=== PATIENT | male | born 1995 | race Hispanic/Latino ===

== ENCOUNTER 2022-11-28 18:24 | Emergency (ER) | payer OTHER ==
--- OUTSIDE RECORDS SUMMARY | 2022-11-28 18:29 | XMS REPORT | Continuity of Care Document ---
:1995 Author Organization [facility] t Address [address] [place] [address] [address] [place] [address] Care Team Providers Name Role Phone No MD, Pcp [facility] Primary Care Physician Unavailable ROSA FAJARDO Attending Clinician Unavailable Erik SHIRLEY, Mkyel Attending Clinician Dominga SHIRLEY, Emeka Attending Clinician Rosalino SHIRLEY, Yoly Attending Clinician Isaac SHIRLEY, Kush Alvarado Attending Clinician Christ SHIRLEY, Devendra Bernstein Attending Clinician JAMES ABEBE Attending Clinician Unavailable Payers Payer Name Policy Type Policy Number Effective Date Expiration Date S ource GENERIC OTHER [id number] 2022 2022 00:00:00 00:00:00 LISETH [id number] 2021 00:00:00 [facility] POS [id number] 2019 SELECT CHOICE 00:00:00 Problems Condition Condition Condition Status Onset Resolution Last Treating Co mments Source Name Details Category Date Date Treatment Clinician Date Morbid Morbid Disease Active 2023-0 [facility] obesity obesity 3-08 Health 00:00: 00 Crush Crush Disease Active [facility] injury injury 3-08 Health 00:00: 00 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 vascular 308 [facility] bypass bypass 00:00: 00 Fracture Fracture Disease Active [facility] of femur of femur 2-13 Health 00:00: 00 Critical Critical Disease Active 2021-03 [facility] polytrauma polytrauma 1-17 He alth 00:00: 00 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) 00 Allergies, Adverse Reactions, Alerts Allergy Allergy Status Severity Reaction(s) Onset Inactive Treating Comm ents Source Name Type Date Date Clinician NO KNOWN Allergy Active [facility] Social History Social Habit Start Date Stop Date Quantity Comments Source History of tobacco Cigarette Smoker [facility] use Exposure to 2022-07-31 2022-08-10 Not sure [facility] SARS-CoV-2 (event) 00:00:00 11:33:00 Tobacco use and 2022-01-12 2022-01-12 Smokeless tobacco [facility] exposure 00:00:00 00:00:00 non-user Alcohol Comment 2022-01-12 2022-01-12 DAILY [facility] 00:00:00 00:00:00 Alcohol intake 2020-11-11 2020-11-11 Current drinker [facility] 00[facility]00 of [facility] (finding) Cigarettes smoked 2019-10-02 2019-10-02 [facility] current (pack per 00:00:00 00:00:00 Medical Center day) - Reported Sex Assigned At [birth year] [facility] 00:00:00 00:00:00 [facility] Center Smoking Status Start Date Stop Date Source Tobacco smoking consumption [facility] Occasional tobacco smoker 2022-01-12 00:00:00 [facility] Smokes tobacco daily 2019-10-02 00:00:00 [facility] Medications Ordered Filled Start Stop Current Ordering Indication Dosage Frequency Signature Comments Components Source Medication Medication Date Date Medication? Clinician (SIG) Name Name acetaminoph 2022- Yes [id number] 1{tbl} Q6H Take 1 UT en-codeine 7-27 08-12 tablet by [facility] (Tylenol w/ 00:00: 04:59 mouth Codeine #3) 00 :00 every 6 300-30 MG (six) tablet hours if needed for severe pain for up to 15 days. aspirin 81 2022-0 Yes 81mg QD Take 81 mg U T MG EC 6-08 by mouth 1 Health tablet 10:54: (one) time 47 each day. aspirin 81 2022-0 Yes 81mg QD Take 81 mg U T MG EC 6-08 by mouth 1 Health tablet 10:54: (one) time 47 each day. aspirin 81 2022-0 Yes 81mg QD Take 81 mg U T MG EC 6-08 by mouth 1 Health tablet 10:54: (one) time 47 each day. acetaminoph Yes [id number] 1{tbl} Q6H Take 1 UT en-codeine 3-27 tablet by [facility] (Tylenol w/ 00:00: mouth Codeine #3) 00 every 6 300-30 MG (six) tablet hours if needed for severe pain. acetaminoph Yes [id number] 1{tbl} Q6H Take 1 UT en-codeine 3-27 tablet by [facility] (Tylenol w/ 00:00: mouth Codeine #3) 00 every 6 300-30 MG (six) tablet hours if needed for severe pain. acetaminoph Yes [id number] 1{tbl} Q6H Take 1 UT en-codeine 3-27 tablet by [facility] (Tylenol w/ 00:00: mouth Codeine #3) 00 every 6 300-30 MG (six) tablet hours if needed for severe pain. acetaminoph 2022- No [id number] 1{tbl} Q6H Take 1 UT en-codeine 3-27 07-27 tablet by [facility] (Tylenol w/ 00:00: 00:00 mouth Codeine #3) 00 :00 every 6 300-30 MG (six) tablet hours if needed for severe pain. traMADol 2022- No [id number] 50mg Q6H Take 1 UT (Ultram) 50 3-23 03-31 tablet (50 H ealth MG tablet 00:00: 04:59 mg total) 00 :00 by mouth every 6 (six) hours if needed for severe pain for up to 7 days. traMADol No [id number] 50mg Q6H Take 1 UT (Ultram) 50 06-08 tablet (50 H ealth MG tablet 00:00: 00:00 mg total) 00 :00 by mouth every 6 (six) hours if needed for severe pain for up to 7 days. acetaminoph No [id number] 1{tbl} Q6H Take 1 UT en-codeine 04-13 tablet by [facility] (Tylenol w/ 00:00: 05:59 mouth Codeine #3) 00 :00 every 6 300-30 MG (six) tablet hours if needed for severe pain for up to 7 days. bupivacaine 2021-03- No [id number] 2mL U T PF 01-12 Health (Marcaine) 15:37: 15:37 0.25 % 28 :00 injection 2 mL bupivacaine 2021-03- No [id number] 2mL U T PF 01-12 Health (Marcaine) 15:37: 15:37 0.25 % 28 :00 injection 2 mL lidocaine 2021-03- No [id number] 2mL UT (Xylocaine) 01-12 Health 1 % 15:37: 15:37 injection 2 28 :00 mL lidocaine 2021-03- No [id number] 2mL UT (Xylocaine) 01-12 Health 1 % 15:37: 15:37 injection 2 28 :00 mL triamcinolo 2021-03- No [id number] 40mg U T ne 01-12 Health acetonide 15:37: 15:37 (Kenalog-40 28 :00 ) injection 40 mg triamcinolo 2021-03- No [id number] 40mg U T ne 01-12 Health acetonide 15:37: 15:37 (Kenalog-40 28 :00 ) injection 40 mg triamcinolo 2021-03 No [id number] 40mg 40 mg, UT ne 01-12 [facility] acetonide 15:37: 15:37 cular, (Kenalog-40 28 :00 Once PRN ) injection Procedure, 40 mg Starting on Che 01/12/22 at 1037, For 1 dose triamcinolo 2021-03- No [id number] 40mg 40 mg, UT ne 01-12 [facility] acetonide 15:37: 15:37 cular, (Kenalog-40 28 :00 Once PRN ) injection Procedure, 40 mg Starting on Che 01/12/22 at 1037, For 1 dose lidocaine 2021-03- No [id number] 2mL 2 mL, UT (Xylocaine) 01-12 Injection, H ealth 1 % 15:37: 15:37 Once PRN injection 2 28 :00 Procedure, mL Starting on Che 01/12/22 at 1037, For 1 dose lidocaine 2021-03- No [id number] 2mL 2 mL, UT (Xylocaine) 01-12 Injection, H ealth 1 % 15:37: 15:37 Once PRN injection 2 28 :00 Procedure, mL Starting on Che 01/12/22 at 1037, For 1 dose bupivacaine 2021-03- No [id number] 2mL 2 mL, UT PF 01-12 Injection, Health (Marcaine) 15:37: 15:37 Once PRN 0.25 % 28 :00 Procedure, injection 2 Starting mL on Che 01/12/22 at 1037, For 1 dose bupivacaine 2021-03- No [id number] 2mL 2 mL, UT PF 01-12 Injection, Health (Marcaine) 15:37: 15:37 Once PRN 0.25 % 28 :00 Procedure, injection 2 Starting mL on Che 01/12/22 at 1037, For 1 dose bupivacaine 2021-03- No [id number] 2mL U T PF 01-12 Health (Marcaine) 15:37: 15:37 0.25 % 28 :00 injection 2 mL bupivacaine 2021-03- No [id number] 2mL U T PF 01-12 Health (Marcaine) 15:37: 15:37 0.25 % 28 :00 injection 2 mL lidocaine 2021-03- No [id number] 2mL UT (Xylocaine) 01-12 Health 1 % 15:37: 15:37 injection 2 28 :00 mL lidocaine 2021-03 No [id number] 2mL UT (Xylocaine) 01-12 Health 1 % 15:37: 15:37 injection 2 28 :00 mL triamcinolo 2021-03- No [id number] 40mg U T ne 01-12 Health acetonide 15:37: 15:37 (Kenalog-40 28 :00 ) injection 40 mg triamcinolo 2021-03- No [id number] 40mg U T ne 01-12 Health acetonide 15:37: 15:37 (Kenalog-40 28 :00 ) injection 40 mg triamcinolo 2021-03- No [id number] 40mg 40 mg, UT ne 01-12 [facility] acetonide 15:37: 15:37 cular, (Kenalog-40 28 :00 Once PRN ) injection Procedure, 40 mg Starting on Che 01/12/22 at 1037, For 1 dose triamcinolo 2021-03 No [id number] 40mg 40 mg, UT ne 01-12 [facility] acetonide 15:37: 15:37 cular, (Kenalog-40 28 :00 Once PRN ) injection Procedure, 40 mg Starting on Che 01/12/22 at 1037, For 1 dose lidocaine 2021-03 No [id number] 2mL 2 mL, UT (Xylocaine) 01-12 Injection, H ealth 1 % 15:37: 15:37 Once PRN injection 2 28 :00 Procedure, mL Starting on Che 01/12/22 at 1037, For 1 dose lidocaine 2021-03 No [id number] 2mL 2 mL, UT (Xylocaine) 01-12 Injection, H ealth 1 % 15:37: 15:37 Once PRN injection 2 28 :00 Procedure, mL Starting on Che 01/12/22 at 1037, For 1 dose bupivacaine 2021-03 No [id number] 2mL 2 mL, UT PF 01-12 Injection, Health (Marcaine) 15:37: 15:37 Once PRN 0.25 % 28 :00 Procedure, injection 2 Starting mL on Che 01/12/22 at 1037, For 1 dose bupivacaine 2021-03 No [id number] 2mL 2 mL, UT PF 01-12 Injection, Health (Marcaine) 15:37: 15:37 Once PRN 0.25 % 28 :00 Procedure, injection 2 Starting mL on Che 01/12/22 at 1037, For 1 dose fenoprofen 2021-03 No [id number] 600mg Q.[id number] Take 1 UT (Nalfon) 02-06 [id number] tablet He alth 600 MG 00:00: 05:59 3D (600 mg tablet 00 :00 total) by mouth in the morning and 1 tablet (600 mg total) at noon and 1 tablet (600 mg total) in the evening. fenoprofen 2021-03- No [id number] 600mg Q.[id number] Take 1 UT ([place]) 02-06 [id number] tablet He alth 600 MG 00:00: 05:59 3D (600 mg tablet 00 :00 total) by mouth in the morning and 1 tablet (600 mg total) at noon and 1 tablet (600 mg total) in the evening. traMADol 2021-03 No [id number] 50mg Q6H Take 1 U T (Ultram) 50 0-19 10-30 tablet (50 H ealth MG tablet 00:00: 04:59 mg total) 00 :00 by mouth every 6 (six) hours if needed for severe pain for up to 10 days. traMADol 2021-03 No [id number] 50mg Q6H Take 1 U T (Ultram) 50 0-19 10-30 tablet (50 H ealth MG tablet 00:00: 04:59 mg total) 00 :00 by mouth every 6 (six) hours if needed for severe pain for up to 10 days. traMADol 2021-03 No [id number] 50mg Q6H Take 1 U T (Ultram) 50 0-19 10-30 tablet (50 H ealth MG tablet 00:00: 04:59 mg total) 00 :00 by mouth every 6 (six) hours if needed for severe pain for up to 10 days. fenoprofen Yes [id number] TAKE 1 UT ([place]) 9-16 TABLET BY Health 600 MG 00:00: MOUTH 3 tablet 00 TIMES A DAY WITH FOOD fenoprofen 2-0 Yes [id number] TAKE 1 UT ([place]) 9-16 TABLET BY Health 600 MG 00:00: MOUTH 3 tablet 00 TIMES A DAY WITH FOOD fenoprofen 2-0 Yes [id number] TAKE 1 UT ([place]) 9-16 TABLET BY Health 600 MG 00:00: MOUTH 3 tablet 00 TIMES A DAY WITH FOOD fenoprofen 2021-0 Yes [id number] TAKE 1 UT ([place]) 9-16 TABLET BY Health 600 MG 00:00: MOUTH 3 tablet 00 TIMES A DAY WITH FOOD fenoprofen 2021-0 Yes [id number] TAKE 1 UT ([place]) 9-16 TABLET BY [facility] 600 MG 00:00: MOUTH 3 tablet 00 TIMES A DAY WITH FOOD fenoprofen 2-0 Yes [id number] TAKE 1 UT ([place]) 9-16 TABLET BY Health 600 MG 00:00: MOUTH 3 tablet 00 TIMES A DAY WITH FOOD fenoprofen 2021-0 Yes [id number] TAKE 1 UT ([place]) 9-16 TABLET BY [facility] 600 MG 00:00: MOUTH 3 tablet 00 TIMES A DAY WITH FOOD fenoprofen 2021-0 Yes [id number] TAKE 1 UT ([place]) 9-16 TABLET BY [facility] 600 MG 00:00: MOUTH 3 tablet 00 TIMES A DAY WITH FOOD fenoprofen 2-0 Yes [id number] TAKE 1 UT ([place]) 9-16 TABLET BY [facility] 600 MG 00:00: MOUTH 3 tablet 00 TIMES A DAY WITH FOOD fenoprofen 2021-0 Yes [id number] TAKE 1 UT ([place]) 9-16 TABLET BY [facility] 600 MG 00:00: MOUTH 3 tablet 00 TIMES A DAY WITH FOOD fenoprofen 2-0 Yes [id number] TAKE 1 UT ([place]) 9-16 TABLET BY Health 600 MG 00:00: MOUTH 3 tablet 00 TIMES A DAY WITH FOOD traMADol 2021-0 2- No [id number] 50mg Q6H Take 1 U T (Ultram) 50 3-28 04-03 tablet (50 H ealth MG tablet 00:00: 04:59 mg total) 00 :00 by mouth every 6 (six) hours if needed for severe pain for up to 5 days. fenoprofen Yes [id number] TAKE ONE UT ([place]) 1-07 (1) TABLET Healt h 600 MG 00:00: BY MOUTH tablet 00 THREE (3) TIMES DAILY WITH FOOD chlordiazeP 2020- No Take [address] [facility] 11[facility]11-29 [facility] (LIBRIUM) 00:00: 23:59 every 6 Medi hao 25 MG 00 :00 hours for Center capsule 4 doses, then 1 tablet every 6 hours for 8 doses. Do not drink alcohol while on this medication .. Vital Signs Vital Name Observation Time Observation Value Comments Source Systolic blood 2022-08-24 15:44:00 129 mm[Hg] [facility] pressure Diastolic blood 2022-08-24 15:44:00 89 mm[Hg] [facility] pressure Heart rate 2022-08-24 15:44:00 77 /min [facility] Respiratory rate 2022-08-24 15:44:00 18 /min [facility] ealth Body weight 2022-08-24 15:44:00 90.175 kg [facility] BMI 2022-08-24 15:44:00 32.09 [facility]m2 [facility] 2022-08-24 15:44:00 97 /min [facility] Arterial blood by Pulse oximetry Body height 2022-06-12 16:31:00 170.2 cm [facility] Body weight 2022-06-12 16:31:00 86.183 kg [facility] BMI 2022-06-12 16:31:00 29.76 kg/m2 [facility] Body height 2022-01-12 14:55:00 167.6 cm [facility] Body weight 2022-01-12 14:55:00 81.647 kg [facility] BMI 2022-01-12 14:55:00 29.05 kg/m2 [facility] Body height 2021-06-13 20:26:00 167.6 cm [facility] Body weight 2021-06-13 20:26:00 83.915 kg [facility] BMI 2021-06-13 20:26:00 29.86 kg/m2 [facility] HEIGHT 2020-11-11 04:45:00 167.6 cm WEIGHT 2020-11-11 04:45:00 81.647 kg HEIGHT 2020-11-11 04:45:00 167.6 cm WEIGHT 2020-11-11 04:45:00 81.647 kg HEIGHT 2019-10-02 00:00:00 167.6 cm WEIGHT 2019-10-02 00:00:00 86.183 kg Systolic blood 2020-11-11 06:48:00 136 mm[Hg] [facility] Diastolic blood 2020-11-11 06:48:00 76 mm[Hg] [facility] Heart rate 2020-11-11 06:48:00 105 /min [facility] Body temperature 2020-11-11 06:48:00 36.89 [facility] Respiratory rate 2020-11-11 06:48:00 18 /min [facility] Oxygen saturation in 2020-11-11 05:44:00 94 /min [facility] Arterial blood by Medical Ce nter Pulse oximetry Body height 2020-11-11 04:45:00 167.6 cm [facility] Body weight 2020-11-11 04:45:00 81.647 kg [facility] BMI 2020-11-11 04:45:00 29.05 kg/m2 [facility] Procedures Procedure Date / Time Performing Clinician Source Performed ARTHROCENTESIS 2022-01-12 15:37:28 Rosalino [facility] ASPIR&/INJ MAJOR JT/BURSA W/US BILATERAL CBC W/PLT COUNT & AUTO 2020-11-11 05:44:00 Kush Gray [facility] DIFFERENTIAL [facility] COMPREHENSIVE METABOLIC 2020-11-11 05:44:00 Kush Gray [facility]AT[facility] (CK) 2020-11-11 05:44:00 Kush Gray [facility] LACTIC ACID, VENOUS 2020-11-11 05:44:00 Kush Gray [facility] CBC W/PLT COUNT & AUTO 2020-11-11 05:44:00 Kush Gray [facility] DIFFERENTIAL [facility] Infectious agent 2019-07-26 00:00:00 [facility] detection by nucleic acid (DNA or Plan of Care Planned Activity Planned Date Details Comments Source Future Scheduled 2022-11-17 Influenza Vaccine (#1) [facility] 00:00:00 [code = Influenza Vaccine Me dical Center (#1)] Future Scheduled 2022-11-17 INFLUENZA VACCINE (Season [facility] 00:00:00 Ended) [code = INFLUENZA Med ical Center VACCINE (Season Ended)] Future Scheduled 2022-11-17 INFLUENZA VACCINE (Season [facility] 00:00:00 Ended) [code = INFLUENZA Med ical Center VACCINE (Season Ended)] Future Scheduled 2022-11-17 INFLUENZA VACCINE (Season [facility] Test 00:00:00 Ended) [code = INFLUENZA Med ical Center VACCINE (Season Ended)] Future Scheduled 2022-11-17 INFLUENZA VACCINE (Season [facility] Test 00:00:00 Ended) [code = INFLUENZA Med ical Center VACCINE (Season Ended)] Future Scheduled 2022-11-17 Influenza Vaccine (Season [facility] 00:00:00 Ended) [code = Influenza Med ical Center Vaccine (Season Ended)] Future Scheduled 2022-11-17 Influenza Vaccine (#1) [facility] 00:00:00 [code = Influenza Vaccine Me dical Center (#1)] Future Scheduled 2022-11-17 Influenza Vaccine (#1) [facility] 00:00:00 [code = Influenza Vaccine Me dical Center (#1)] Future Scheduled 2022-03-[address] [facility] 00:00:00 (12+) [code = DEPRESSION Med ical Center SCREENING (12+)] Future Scheduled 2022-03-[address] [facility] 00:00:00 (12+) [code = DEPRESSION Med ical Center SCREENING (12+)] Future Scheduled 2022-03-[address] [facility] 00:00:00 (12+) [code = DEPRESSION Med ical Center SCREENING (12+)] Future Scheduled 2022-03-[address] [facility] 00:00:00 (12+) [code = DEPRESSION Med ical Center SCREENING (12+)] Future Scheduled 2022-03-[address] [facility] 00:00:00 (12+) [code = DEPRESSION Med ical Center SCREENING (12+)] Future Scheduled 2022-03-[address] [facility] 00:00:00 (12+) [code = DEPRESSION Med ical Center SCREENING (12+)] Future Scheduled 2022-03-[address] [facility] 00:00:00 (12+) [code = DEPRESSION Med ical Center SCREENING (12+)] Future Scheduled 2022-03-[address] [facility] 00:00:00 (12+) [code = DEPRESSION Med ical Center SCREENING (12+)] Future Scheduled 2022-03-[address] [facility] 00:00:00 (12+) [code = DEPRESSION Med ical Center SCREENING (12+)] Future Scheduled 2022-03-[address] [facility] 00:00:00 (12+) [code = DEPRESSION Med ical Center SCREENING (12+)] Future Scheduled 2022-03-[address] [facility] 00:00:00 (12+) [code = DEPRESSION Med ical Center SCREENING (12+)] Future Scheduled 2022-03-[address] [facility] 00:00:00 (12+) [code = DEPRESSION Med ical Center SCREENING (12+)] Future Scheduled 2022-03-[address] [facility] 00:00:00 (12+) [code = DEPRESSION Med ical Center SCREENING (12+)] Future Scheduled 2022-03-[address] [facility] 00:00:00 (12+) [code = DEPRESSION Med ical Center SCREENING (12+)] Future Scheduled 2022-03-[address] [facility] 00:00:00 (12+) [code = DEPRESSION Med ical Center SCREENING (12+)] Future Scheduled 2022-03-[address] [facility] 00:00:00 (12+) [code = DEPRESSION Med ical Center SCREENING (12+)] Future Scheduled 2021-11-17 INFLUENZA VACCINE (#1) [facility] 00:00:00 [code = INFLUENZA VACCINE Me dical Center (#1)] Future Scheduled 2021-11-17 INFLUENZA VACCINE (#1) [facility] 00:00:00 [code = INFLUENZA VACCINE Me dical Center (#1)] Future Scheduled 2021-11-17 INFLUENZA VACCINE (#1) [facility] 00:00:00 [code = INFLUENZA VACCINE Me dical Center (#1)] Future Scheduled 2021-11-17 INFLUENZA VACCINE (#1) [facility] 00:00:00 [code = INFLUENZA VACCINE Me dical Center (#1)] Future Scheduled 2021-11-17 INFLUENZA VACCINE (#1) [facility] 00:00:00 [code = INFLUENZA VACCINE Me dical Center (#1)] Future Scheduled 2021-11-17 INFLUENZA VACCINE (#1) [facility] 00:00:00 [code = INFLUENZA VACCINE Me dical Center (#1)] Future Scheduled 2021-11-17 INFLUENZA VACCINE (#1) [facility] 00:00:00 [code = INFLUENZA VACCINE Me dical Center (#1)] Future Scheduled 2021-11-17 INFLUENZA VACCINE (#1) [facility] 00:00:00 [code = INFLUENZA VACCINE Me dical Center (#1)] Future Scheduled 2021-11-17 INFLUENZA VACCINE (#1) [facility] 00:00:00 [code = INFLUENZA VACCINE Me dical Center (#1)] Future Scheduled 2021-11-17 INFLUENZA VACCINE (#1) [facility] 00:00:00 [code = INFLUENZA VACCINE Me dical Center (#1)] Future Scheduled 2021-11-17 INFLUENZA VACCINE (#1) [facility] 00:00:00 [code = INFLUENZA VACCINE Me dical Center (#1)] Future Scheduled 2021-11-17 INFLUENZA VACCINE (#1) [facility] 00:00:00 [code = INFLUENZA VACCINE Me dical Center (#1)] Future Scheduled 2021-11-[address] [facility] 00:00:00 Counseling and Screening Med ica Center (12+) [code = Tobacco Cessation Counseling and Screening (12+)] Future Scheduled 2021-11-[address] [facility] 00:00:00 Counseling and Screening Med ical Center (12+) [code = Tobacco Cessation Counseling and Screening (12+)] Future Scheduled 2021-11-[address] [facility] 00:00:00 Counseling and Screening Med ical Center (12+) [code = Tobacco Cessation Counseling and Screening (12+)] Future Scheduled 2021-11-[address] [facility] 00:00:00 Counseling and Screening Med ical Center (12+) [code = Tobacco Cessation Counseling and Screening (12+)] Future Scheduled 2021-11-[address] [facility] 00:00:00 Counseling and Screening Med ical Center (12+) [code = Tobacco Cessation Counseling and Screening (12+)] Future Scheduled 2021-11-[address] [facility] 00:00:00 Counseling and Screening Med ical Center (12+) [code = Tobacco Cessation Counseling and Screening (12+)] Future Scheduled 2021-11-[address] [facility] 00:00:00 Counseling and Screening Med ical Center (12+) [code = Tobacco Cessation Counseling and Screening (12+)] Future Scheduled 2021-11-[address] [facility] 00:00:00 Counseling and Screening Med ical Center (12+) [code = Tobacco Cessation Counseling and Screening (12+)] Future Scheduled 2021-11-[address] [facility] 00:00:00 Counseling and Screening Med ical Center (12+) [code = Tobacco Cessation Counseling and Screening (12+)] Future Scheduled 2021-11-[address] [facility] 00:00:00 Counseling and Screening Med ical Center (12+) [code = Tobacco Cessation Counseling and Screening (12+)] Future Scheduled 2021-11-[address] [facility] 00:00:00 Counseling and Screening Med ical Center (12+) [code = Tobacco Cessation Counseling and Screening (12+)] Future Scheduled 2021-11-[address] [facility] 00:00:00 Counseling and Screening Med ical Center (12+) [code = Tobacco Cessation Counseling and Screening (12+)] Future Scheduled 2021-11-[address] [facility] 00:00:00 Counseling and Screening Med ical Center (12+) [code = Tobacco Cessation Counseling and Screening (12+)] Future Scheduled 2021-11-[address] [facility] 00:00:00 Counseling and Screening Med ical Center (12+) [code = Tobacco Cessation Counseling and Screening (12+)] Future Scheduled 2021-11-[address] [facility] 00:00:00 Counseling and Screening Med ical Center (12+) [code = Tobacco Cessation Counseling and Screening (12+)] Future Scheduled 2021-11-[address] [facility] 00:00:00 Counseling and Screening Med ical Center (12+) [code = Tobacco Cessation Counseling and Screening (12+)] Future Scheduled 2021-11-[address] [facility] 00:00:00 Counseling and Screening Med ical Center (12+) [code = Tobacco Cessation Counseling and Screening (12+)] Future Scheduled 2021-11-[address] [facility] 00:00:00 Counseling and Screening Med ical Center (12+) [code = Tobacco Cessation Counseling and Screening (12+)] Future Scheduled 2021-11-[address] [facility] 00:00:00 Counseling and Screening Med ical Center (12+) [code = Tobacco Cessation Counseling and Screening (12+)] Future Scheduled 2021-03-[address] [facility] 00:00:00 (12+) [code = DEPRESSION Med ical Center SCREENING (12+)] Future Scheduled 2021-03-[address] [facility] 00:00:00 (12+) [code = DEPRESSION Med ical Center SCREENING (12+)] Future Scheduled 2021-03-[address] [facility] 00:00:00 (12+) [code = DEPRESSION Med ical Center SCREENING (12+)] Future Scheduled 2021-03-[address] [facility] 00:00:00 (12+) [code = DEPRESSION Med ical Center SCREENING (12+)] Future Scheduled 2021-03-[address] [facility] 00:00:00 (12+) [code = DEPRESSION Med ical Center SCREENING (12+)] Future Scheduled 2020-11-17 INFLUENZA VACCINE (#1) [facility] 00:00:00 [code = INFLUENZA VACCINE Or dical Center (#1)] Future Scheduled 2014 Lipid panel (procedure) [facility] 00:00:00 [code = [id number]] Medical Ce nter Future Scheduled 2014 Lipid panel (procedure) [facility] 00:00:00 [code = [id number]] Medical Ce nter Future Scheduled 2014 Lipid panel (procedure) [facility] 00:00:00 [code = [id number]] Medical Ce nter Future Scheduled 2014 Lipid panel (procedure) [facility] 00:00:00 [code = [id number]] Medical Ce nter Future Scheduled 2014 Lipid panel (procedure) [facility] 00:00:00 [code = [id number]] Medical Ce nter Future Scheduled 2014 Lipid panel (procedure) [facility] 00:00:00 [code = [id number]] Medical Ce nter Future Scheduled 2014 Lipid panel (procedure) [facility] 00:00:00 [code = [id number]] Medical Ce nter Future Scheduled 2014 Lipid panel (procedure) [facility] 00:00:00 [code = [id number]] Medical Ce nter Future Scheduled 2014 Lipid panel (procedure) [facility] 00:00:00 [code = [id number]] Medical Ce nter Future Scheduled 2014 Lipid panel (procedure) [facility] 00:00:00 [code = [id number]] Medical Ce nter Future Scheduled 2014 Lipid panel (procedure) [facility] 00:00:00 [code = [id number]] Medical Ce nter Future Scheduled 2014 Lipid panel (procedure) [facility] 00:00:00 [code = 36826234] Medical Ce nter Future Scheduled 2014 Lipid panel (procedure) [facility] 00:00:00 [code = [id number]] Medical Ce nter Future Scheduled 2014 Lipid panel (procedure) [facility] 00:00:00 [code = [id number]] Medical Ce nter Future Scheduled 2014 Lipid panel (procedure) [facility] 00:00:00 [code = [id number]] Medical Ce nter Future Scheduled 2014 Lipid panel (procedure) [facility] 00:00:00 [code = 51669473] Medical Ce nter Future Scheduled 2014 Lipid panel (procedure) [facility] 00:00:00 [code = 95375480] Medical Ce nter Future Scheduled 2014 Lipid panel (procedure) [facility] 00:00:00 [code = 41253066] Medical Ce nter Future Scheduled 2014 Lipid panel (procedure) [facility] 00:00:00 [code = 09932349] Medical Ce nter Future Scheduled 2014 Lipid panel (procedure) [facility] 00:00:00 [code = 75832095] Medical Ce nter Future Scheduled 2014 Lipid panel (procedure) [facility] 00:00:00 [code = [id number]] Medical Ce nter Future Scheduled 2013 DTAP/TDAP/TD VACCINES ([address] [facility] 00:00:00 - Tdap) [code = Medical Cent er DTAP/TDAP/TD VACCINES (1 - Tdap)] Future Scheduled 2013 DTAP/TDAP/TD VACCINES ([address] [facility] 00:00:00 - Tdap) [code = Medical Cent er DTAP/TDAP/TD VACCINES (1 - Tdap)] Future Scheduled 2013 DTAP/TDAP/TD VACCINES ([address] [facility] 00:00:00 - Tdap) [code = Medical Cent er DTAP/TDAP/TD VACCINES (1 - Tdap)] Future Scheduled 2013 DTAP/TDAP/TD VACCINES ([address] [facility] 00:00:00 - Tdap) [code = Medical Cent er DTAP/TDAP/TD VACCINES (1 - Tdap)] Future Scheduled 2013 DTAP/TDAP/TD VACCINES ([address] [facility] 00:00:00 - Tdap) [code = Medical Cent er DTAP/TDAP/TD VACCINES (1 - Tdap)] Future Scheduled 2013 DTAP/TDAP/TD VACCINES ([address] [facility] 00:00:00 - Tdap) [code = Medical Cent er DTAP/TDAP/TD VACCINES (1 - Tdap)] Future Scheduled 2013 DTAP/TDAP/TD VACCINES ([address] [facility] 00:00:00 - Tdap) [code = Medical Cent er DTAP/TDAP/TD VACCINES (1 - Tdap)] Future Scheduled 2013 DTAP/TDAP/TD VACCINES ([address] [facility] 00:00:00 - Tdap) [code = Medical Cent er DTAP/TDAP/TD VACCINES (1 - Tdap)] Future Scheduled 2013 DTAP/TDAP/TD VACCINES ([address] [facility] 00:00:00 - Tdap) [code = Medical Cent er DTAP/TDAP/TD VACCINES (1 - Tdap)] Future Scheduled 2013 DTAP/TDAP/TD VACCINES ([address] [facility] 00:00:00 - Tdap) [code = Medical Cent er DTAP/TDAP/TD VACCINES (1 - Tdap)] Future Scheduled 2013 DTAP/TDAP/TD VACCINES ([address] [facility] 00:00:00 - Tdap) [code = Medical Cent er DTAP/TDAP/TD VACCINES (1 - Tdap)] Future Scheduled 2013 DTAP/TDAP/TD VACCINES ([address] [facility] 00:00:00 - Tdap) [code = Medical Cent er DTAP/TDAP/TD VACCINES (1 - Tdap)] Future Scheduled 2013 DTAP/TDAP/TD VACCINES ([address] [facility] 00:00:00 - Tdap) [code = Medical Cent er DTAP/TDAP/TD VACCINES (1 - Tdap)] Future Scheduled 2013 DTAP/TDAP/TD VACCINES ([address] [facility] 00:00:00 - Tdap) [code = Medical Cent er DTAP/TDAP/TD VACCINES (1 - Tdap)] Future Scheduled 2013 DTAP/TDAP/TD VACCINES ([address] [facility] 00:00:00 - Tdap) [code = Medical Cent er DTAP/TDAP/TD VACCINES (1 - Tdap)] Future Scheduled 2013 DTAP/TDAP/TD VACCINES ([address] [facility] 00:00:00 - Tdap) [code = Medical Cent er DTAP/TDAP/TD VACCINES (1 - Tdap)] Future Scheduled 2013 DTAP/TDAP/TD VACCINES ([address] [facility] 00:00:00 - Tdap) [code = Medical Cent er DTAP/TDAP/TD VACCINES (1 - Tdap)] Future Scheduled 2013 DTAP/TDAP/TD VACCINES ([address] [facility] 00:00:00 - Tdap) [code = Medical Cent er DTAP/TDAP/TD VACCINES (1 - Tdap)] Future Scheduled 2013 DTAP/TDAP/TD VACCINES ([address] [facility] 00:00:00 - Tdap) [code = Medical Cent er DTAP/TDAP/TD VACCINES (1 - Tdap)] Future Scheduled 2013 DTAP/TDAP/TD VACCINES ([address] [facility] 00:00:00 - Tdap) [code = Medical Cent er DTAP/TDAP/TD VACCINES (1 - Tdap)] Future Scheduled 2013 DTAP/TDAP/TD VACCINES ([address] [facility] 00:00:00 - Tdap) [code = Medical Cent er DTAP/TDAP/TD VACCINES (1 - Tdap)] Future Scheduled 2012 HE[facility]ITIS C [facility]CRE[facility] [code = HEPATITIS C Medical Center SCREENING] Future Scheduled 2012 [facility]ITIS C [facility]:00:00 [code = HEPATITIS C Medical Center SCREENING] Future Scheduled 2012 HE[facility]ITIS C [facility]:00:00 [code = HEPATITIS C Medical Center SCREENING] Future Scheduled 2012 HE[facility]ITIS C [facility] 00:00:00 [code = HEPATITIS C Medical Center SCREENING] Future Scheduled 2012 HE[facility]ITIS C [facility] 00:00:00 [code = HEPATITIS C Medical Center SCREENING] Future Scheduled 2012 HE[facility]ITIS C [facility] 00:00:00 [code = HEPATITIS C Medical Center SCREENING] Future Scheduled 2012 HEPATITIS C [facility] 00:00:00 [code = HEPATITIS C Medical Center SCREENING] Future Scheduled 2012 HE[facility]ITIS C [facility] 00:00:00 [code = HEPATITIS C Medical Center SCREENING] Future Scheduled 2012 HEPATITIS C [facility] 00:00:00 [code = HEPATITIS C Medical Center SCREENING] Future Scheduled 2012 HEPATITIS C [facility] 00:00:00 [code = HEPATITIS C Medical Center SCREENING] Future Scheduled 2012 HEPATITIS C [facility] 00:00:00 [code = HEPATITIS C Medical Center SCREENING] Future Scheduled 2012 HEPATITIS C [facility] 00:00:00 [code = HEPATITIS C Medical Center SCREENING] Future Scheduled 2012 HEPATITIS C [facility] 00:00:00 [code = HEPATITIS C Medical Center SCREENING] Future Scheduled 2012 HE[facility]ITIS C [facility] 00:00:00 [code = HEPATITIS C Medical Center SCREENING] Future Scheduled 2012 HE[facility]ITIS C [facility] 00:00:00 [code = HEPATITIS C Medical Center SCREENING] Future Scheduled 2012 HE[facility]ITIS C [facility] 00:00:00 [code = HEPATITIS C Medical Center SCREENING] Future Scheduled 2012 HEPATITIS C [facility] 00:00:00 [code = HEPATITIS C Medical Center SCREENING] Future Scheduled 2012 HEPATITIS C [facility] 00:00:00 [code = HEPATITIS C Medical Center SCREENING] Future Scheduled 2012 HE[facility]ITIS C [facility] 00:00:00 [code = HEPATITIS C Medical Center SCREENING] Future Scheduled 2012 HEPATITIS C [facility] 00:00:00 [code = HEPATITIS C Medical Center SCREENING] Future Scheduled 2012 HE[facility]ITIS C [facility] 00:00:00 [code = HEPATITIS C Medical Center SCREENING] Future Scheduled [address] [facility] virus screening [facility] (procedure) [code = [id number]] Future Scheduled [address] Human immunodeficiency [facility] virus screening [facility] (procedure) [code = [id number]] Future Scheduled [address] Human [address] [facility] 00:[facility] virus screening [facility] (procedure) [code = [id number]] Future Scheduled 2000 PNEUMOCOCCAL VACCINE 0-[address] [facility] 00:00:00 YRS (1 - PCV) [code = Medica l Center PNEUMOCOCCAL VACCINE 0-64 YRS (1 - PCV)] Future Scheduled 2000 PNEUMOCOCCAL VACCINE 0-[address] [facility] 00:00:00 YRS (1 - PCV) [code = Medica l Center PNEUMOCOCCAL VACCINE 0-64 YRS (1 - PCV)] Future Scheduled 2000 PNEUMOCOCCAL VACCINE 0-[address] [facility] 00:00:00 YRS (1 - PCV) [code = Medica l Center PNEUMOCOCCAL VACCINE 0-64 YRS (1 - PCV)] Future Scheduled 2000 PNEUMOCOCCAL VACCINE 0-[address] [facility] 00:00:00 YRS (1 - PCV) [code = Medica l Center PNEUMOCOCCAL VACCINE 0-64 YRS (1 - PCV)] Future Scheduled 2000 PNEUMOCOCCAL VACCINE 0-[address] [facility] 00:00:00 YRS (1 - PCV) [code = Medica l Center PNEUMOCOCCAL VACCINE 0-64 YRS (1 - PCV)] Future Scheduled 2000 PNEUMOCOCCAL VACCINE 0-[address] [facility] 00:00:00 YRS (1 - PCV) [code = Medica l Center PNEUMOCOCCAL VACCINE 0-64 YRS (1 - PCV)] Future Scheduled 2000 PNEUMOCOCCAL VACCINE 0-[address] [facility] 00:00:00 YRS (1 - PCV) [code = Medica l Center PNEUMOCOCCAL VACCINE 0-64 YRS (1 - PCV)] Future Scheduled 2000 PNEUMOCOCCAL VACCINE 0-[address] [facility] 00:00:00 YRS (1 - PCV) [code = Medica l Center PNEUMOCOCCAL VACCINE 0-64 YRS (1 - PCV)] Future Scheduled 2000 PNEUMOCOCCAL VACCINE 0-[address] [facility] 00:00:00 YRS (1 - PCV) [code = Medica l Center PNEUMOCOCCAL VACCINE 0-64 YRS (1 - PCV)] Future Scheduled 2000 Pneumococcal Vaccine: [facility] 00:[facility]:00 0-64 Years (1 - PCV) Medical Center [code = Pneumococcal Vaccine: 0-64 Years (1 - PCV)] Future Scheduled 2000 Pneumococcal Vaccine: [facility] 00:[facility]:00 0-64 Years (1 - PCV) Medical Center [code = Pneumococcal Vaccine: 0-64 Years (1 - PCV)] Future Scheduled 2000 Pneumococcal Vaccine: [facility] 00:[facility]:00 0-64 Years (1 - PCV) Medical Center [code = Pneumococcal Vaccine: 0-64 Years (1 - PCV)] Future Scheduled 2000 PNEUMOCOCCAL VACCINE 0-[address] [facility] 00:00:00 YRS (1 of 2 - PPSV23) [facility] Center [code = PNEUMOCOCCAL VACCINE 0-64 YRS (1 of 2 - PPSV23)] Future Scheduled 2000 PNEUMOCOCCAL VACCINE 0-[address] [facility] 00:00:00 YRS (1 - PCV) [code = Medica l Center PNEUMOCOCCAL VACCINE 0-64 YRS (1 - PCV)] Future Scheduled 2000 PNEUMOCOCCAL VACCINE 0-[address] [facility] 00:00:00 YRS (1 - PCV) [code = Medica l Center PNEUMOCOCCAL VACCINE 0-64 YRS (1 - PCV)] Future Scheduled 2000 PNEUMOCOCCAL VACCINE 0-[address] [facility] 00:00:00 YRS (1 - PCV) [code = Medica l Center PNEUMOCOCCAL VACCINE 0-64 YRS (1 - PCV)] Future Scheduled 2000 PNEUMOCOCCAL VACCINE 0-[address] [facility] 00:00:00 YRS (1 - PCV) [code = Medica l Center PNEUMOCOCCAL VACCINE 0-64 YRS (1 - PCV)] Future Scheduled 2000 PNEUMOCOCCAL VACCINE 0-[address] [facility] 00:00:00 YRS (1 - PCV) [code = Medica l Center PNEUMOCOCCAL VACCINE 0-64 YRS (1 - PCV)] Future Scheduled 2000 PNEUMOCOCCAL VACCINE 0-[address] [facility] 00:00:00 YRS (1 - PCV) [code = Medica l Center PNEUMOCOCCAL VACCINE 0-64 YRS (1 - PCV)] Future Scheduled 2000 PNEUMOCOCCAL VACCINE 0-[address] [facility] 00:00:00 YRS (1 - PCV) [code = Medica l Center PNEUMOCOCCAL VACCINE 0-64 YRS (1 - PCV)] Future Scheduled 2000 Pneumococcal Vaccine: [facility] 00:[facility]:00 0-64 Years (1 - PCV) Medical Center [code = Pneumococcal Vaccine: 0-64 Years (1 - PCV)] Future Scheduled 1999-06-05 COVID-19 VACCINE (1) [facility] 00:00:00 [code = COVID-19 VACCINE Med ical Center (1)] Future Scheduled 1994 COVID-19 VACCINE (#1) [facility] 00:[facility]:00 [code = COVID-19 VACCINE [facility] ical Center (#1)] Future Scheduled 1994 COVID-19 VACCINE (#1) [facility] 00:[facility] [code = COVID-19 VACCINE [facility] ical Center (#1)] Future Scheduled 1994 COVID-19 VACCINE (#1) [facility] 00:[facility] [code = COVID-19 VACCINE [facility] ical Center (#1)] Future Scheduled 1994 COVID-19 VACCINE (#1) [facility] 00:[facility] [code = COVID-19 VACCINE [facility] ical Center (#1)] Future Scheduled 1994 COVID-19 VACCINE (#1) [facility] [code = COVID-19 VACCINE [facility] ical Center (#1)] Future Scheduled 1994 COVID-19 VACCINE (#1) [facility] 00:[facility] [code = COVID-19 VACCINE [facility] ical Center (#1)] Future Scheduled 1994 COVID-19 VACCINE (#1) [facility] 00:00:[facility] [code = COVID-19 VACCINE [facility] ical Center (#1)] Future Scheduled 1994 COVID-19 VACCINE (#1) [facility] 00:00:00 [code = COVID-19 VACCINE [facility] ical Center (#1)] Future Scheduled 1994 COVID-19 VACCINE (#1) [facility] [code = COVID-19 VACCINE [facility] ical Center (#1)] Future Scheduled 1994 COVID-19 VACCINE (#1) [facility]:00:00 [code = COVID-19 VACCINE [facility] ical Center (#1)] Future Scheduled 1994 COVID-19 VACCINE (#1) [facility]:00:00 [code = COVID-19 VACCINE [facility] ical Center (#1)] Future Scheduled 1994 COVID-19 VACCINE (#1) [facility]:00:[facility] [code = COVID-19 VACCINE [facility] ical Center (#1)] Future Scheduled 1994 COVID-19 VACCINE (#1) [facility] [code = COVID-19 VACCINE [facility] ical Center (#1)] Future Scheduled 1994 COVID-19 VACCINE (#1) [facility] [code = COVID-19 VACCINE [facility] ical Center (#1)] Future Scheduled 1994 COVID-19 VACCINE (#1) [facility] [code = COVID-19 VACCINE [facility] ical Center (#1)] Future Scheduled 1994 COVID-19 VACCINE (#1) [facility] [code = COVID-19 VACCINE [facility] ical Center (#1)] Future Scheduled 1994 COVID-19 VACCINE (#1) [facility] [code = COVID-19 VACCINE [facility] ical Center (#1)] Future Scheduled 1994 COVID-19 VACCINE (#1) [facility] [code = COVID-19 VACCINE [facility] ical Center (#1)] Future Scheduled 1994 COVID-19 VACCINE (#1) [facility] 00:00:[facility] [code = COVID-19 VACCINE Med ical Center (#1)] Future Scheduled 1994 COVID-19 VACCINE (#1) [facility] [code = COVID-19 VACCINE Med ical Center (#1)] Encounters Start End Encounter Admission Attending Care Care Encounter Source Date/Time Date/Time Type Type Clinicians Facility Department ID 2022-10-16 Outpatient [facility] [id number] [place] 01:05:53 [id number] [facility] 2022-10-12 Outpatient [facility] [id number] [place] 10:53:21 [id number] [facility] 2022-10-02 Outpatient [place] [id number] [place] 14:31:44 [id number] [facility] 2022-09-01 Outpatient [facility] [id number] [place] 03:59:00 [id number] [facility] 2022-08-29 Outpatient [facility] [place] [id number] [place] 03:57:54 [id number] [facility] 2022-08-25 Outpatient [facility] UT [id number] UT 06:11:03 [id number] [facility] 2022-08-24 Outpatient [facility] UT [id number] UT 06:20:45 [id number] [facility] 2022-08-23 Outpatient [place] UT [id number] UT 06:26:36 [id number] [facility] 2022-08-22 Outpatient [facility] UT [id number] UT 16:08:51 [id number] [facility] 2022-08-14 Outpatient [place] [id number] UT 01:04:39 [id number] [facility] 2022-08-10 Outpatient [place] UT [id number] UT 11:33:09 [id number] [facility] 2022-08-09 Outpatient [place] [id number] UT 14:52:44 [id number] [facility] 2022-08-07 Outpatient [place] UT [id number] UT 06:06:08 [id number] [facility] 2022-08-01 Outpatient [place] UT [id number] UT 11:31:20 [id number] [facility] 2022-07-28 Outpatient [place] UT [id number] UT 14:20:19 [id number] [facility] 2022-06-22 Outpatient [place] UT [id number] UT 06:46:18 [id number] [facility] 2022-06-14 Outpatient [place] UT [id number] UT 04:24:19 [id number] [facility] 2022-06-13 Outpatient [place] UT [id number] UT 04:20:43 [id number] [facility] 2022-06-12 Outpatient [facility] UT [id number] UT 01:04:07 [id number] [facility] 2022-06-08 Outpatient UTH UT [id number] UT 12:31:19 [id number] [facility] 2022-06-07 Outpatient UTH UT [id number] UT 07:25:43 [id number] [facility] 2022-06-06 Outpatient UTH UTH [id number] UT 13:04:52 [id number] [facility] 2022-05-31 Outpatient UTH UTH [id number] UT 12:04:02 [id number] [facility] 2022-05-25 Outpatient UTH UTH [id number] UT 06:29:47 [id number] [facility] 2022-05-16 Outpatient UTH UTH [id number] UT 04:27:08 [id number] [facility] 2022-05-15 Outpatient UTH UTH [id number] UT 01:04:07 [id number] [facility] 2022-05-11 Outpatient UTH UT [id number] UT 12:36:20 [id number] [facility] 2022-05-10 Outpatient UTH UTH [id number] UT 13:27:08 [id number] [facility] 2022-05-08 Outpatient UTH UT [id number] UT 09:07:51 [id number] [facility] 2022-05-06 Outpatient UTH UT [id number] UT 09:34:33 [id number] [facility] 2022-05-05 Outpatient UTH UT [id number] UT 04:27:11 [id number] [facility] 2022-05-02 Outpatient UTH UT [id number] UT 04:24:38 [id number] [facility] 2022-04-29 Outpatient UTH UTH [id number] UT 04:23:06 [id number] [facility] 2022-04-28 Outpatient [place] UT [id number] UT 04:23:55 [id number] [facility] 2022-04-27 Outpatient UTH UTH [id number] UT 04:23:03 [id number] [facility] 2022-04-26 Outpatient UTH UTH [id number] UT 04:25:11 [id number] [facility] 2022-04-25 Outpatient UTH UTH [id number] UT 14:07:37 [id number] [facility] 2022-04-22 Outpatient UTH UTH [id number] UT 08:28:53 [id number] [facility] 2022-04-17 Outpatient UTH UTH [id number] UT 01:04:50 [id number] [facility] 2022-04-13 Outpatient UTH UTH [id number] UT 06:30:36 [id number] [facility] 2022-04-12 Outpatient [facility] [id number] [place] 11:34:21 [id number] [facility] 2022-03-27 Outpatient [facility] [id number] [place] 09:26:18 [id number] [facility] 2022-03-22 Outpatient [facility] [id number] [place] 14:28:27 [id number] [facility] 2021-12-28 Outpatient [facility] [id number] [place] 06:00:07 [id number] [facility] 2021-12-27 Outpatient [facility] [id number] UT 14:30:59 [id number] [facility] 2021-12-02 Outpatient [facility] [id number] UT 10:03:39 [id number] [facility] 2021-06-13 Outpatient HADNOTT, [facility] [id number] [place] 13:46:57 ROSA [id number] [facility] 2021-03-25 Outpatient HADNOTT, [facility] [id number] [place] 10:23:57 [facility] 2022-10-12 2022-10-12 Office Erik, UTP 6414 [id number] [place] 11:00:00 11:56:[address] [id number] Health 9.2.7.2.686 [id number] 1 2022-08-24 2022-08-24 Office Dominga, UTP 6400 [id number] [place] 10:30:00 11:33:[address] [id number] Health 9.2.7.2.686 [id number] 2 2022-08-10 2022-08-10 Office Erik, UTP 6414 1.2.840.114 [id number] [place] 11:30:00 12:07:[address] [id number] Health 9.2.7.2.686 [id number] 1 2022-08-10 2022-08-10 Outpatient [facility] [id number] [place] 11:30:00 11:30:00 [facility] 2022-06-12 2022-06-12 Office Hadnott, UTP [facility] [id number] [place] 11:00:00 11:52:52 Visit Rosa ORTHO AND [id number] Health [place] 9.2.7.2.686 MEDICAL [id number] [address] 2 2022-06-08 2022-06-08 Office JAYNE Valencia 6414 1.2.840.114 [id number] [place] 12:30:00 12:57:[address] [id number] Health 9.2.7.2.686 [id number] 1 2022-05-11 2022-05-11 Office JAYNE Valencia 6414 1.2.840.114 [id number] [place] 12:30:00 13:20:[address] [id number] Health 9.2.7.2.686 [id number] 1 2022-04-13 2022-04-13 Office JAYNE Valencia 6414 1.2.840.114 [id number] [place] 13:45:00 14:59:[address] [id number] Health 9.2.7.2.686 [id number] 1 2022-01-12 2022-01-12 Office Yoly Mtz [facility] 1.2.840.114 [id number] [place] 09:45:00 10:51:43 Visit ORTHO AND [id number] Health SPINE 9.2.7.2.686 MEDICAL [id number] PLA[address] 2 2022-01-06 2022-01-06 Outpatient YOLY MTZ [facility] [id number] [place] 08:30:00 08:30:00 Health 2022-01-04 2022-01-04 Outpatient [facility] [id number] [place] 16:05:00 16:58:31 Health 2022-01-04 2022-01-04 Office JAYNE Fajardo [facility] 1.2.840.114 [id number] [place] 15:45:00 16:58:31 Visit Rosa ORTHO AND [id number] Health SP[place] 9.2.7.2.686 MEDICAL [id number] [address] 2 2021-12-14 2021-12-14 Outpatient KIRTI [facility] [id number] [place] 15:30:00 15:30:00 ROSA Dahl 2021-06-13 2021-06-13 Office JAYNE Fajardo [facility] 1.2.840.114 [id number] [place] 15:00:00 16:32:56 Visit Rosa PIMENTEL AND [id number] Health SP[place] 9.2.7.2.686 MEDICAL [id number] PLA[address] 2 2020-11-11 2020-11-[address] [facility] [id number] [facility] [address] 04:37:00 06:49:00 Devendra Polo [facility] 2020-11-11 2020-11-11 Emergency ER [facility] [id number] [facility] 04:33:00 04:33:00 2020-11-11 2020-11-11 Travel [facility] [id number] [facility] 00:00:00 [facility] 2019-10-02 2019-10-02 Emergency ER [facility] Emergency [id number] [facility] 12:41:00 12:41:00 2019-09-14 2019-09-14 Outpatient [facility] [id number] [facility] 00:00:00 00:00:00 [id number] 2019-07-26 Outpatient [facility] [id number] Access 11:30:00 11:30:00 [id number] [facility] [id number] 2019-07-26 2019-07-26 [facility] [id number] Access 00:00:00 00:00:00 JAMES [facility] 2019-07-26 2019-07-26 Outpatient MIS [facility] [id number] Access 00:00:00 00:00:00 JAMES Lyndon [id number] [facility] [id number] Results Test Description Test Time Test Comments Results Result Comments Source Comprehensive metabolic panel 2020-11-11 06:32:00 Test Item Value Reference Range Interpretation Comme nts Protein, Total (test 7.0 See_Comment [Autom ated message] The code = 2885-2) system which generated this result tra nsmitted reference range : 6.0 - 8.5 gm/dL. The reference range was not u sed to interpret this result as normal/abnormal . Albumin (test code = 4.3 g/dL 3.5-5.0 53458-1) Alkaline Phosphatase 75 U/L 30-115 (test code = 6768-6) Total Bilirubin (test 0.9 mg/dL 0.1-1.2 code = 1974-2) Sodium (test code = 139 meq/L 515-237 8515-2) Potassium (test code = 3.3 meq/L 3.6-5.5 L 2823-3) Chloride (test code = 104 meq/L 98-106 2075-0) CO2 (test code = 20 meq/L 20-29 8-9) BUN (test code = 7 mg/dL 10-26 L 3094-0) Creatinine (test code 0.69 mg/dL 0.50-1.20 = 2160-0) Glucose (test code = 123 mg/dL 70-110 H 2345-7) Calcium (test code = 9.5 mg/dL 8.5-10.5 37268-6) AST (test code = 19 U/L 5-40 1920-8) ALT (test code = 17 U/L 5-50 1742-6) EGFR (test code = 139 mL/min/1.73 [place] [address]-7) ACCURATE CRE ATININE CLEARANCE IN MD EDICTING GLOMERULAR FILT RATION RATE. ESTIMATED GFR IS NOT APPLICABLE FOR DIALYSIS PATIEN TS. MIRANDA (test code = MIRANDA) Fowl Blood Tester ID - LITOOperator ID - LITOOperator ID - LITOOperator ID - LITOOperator ID - LITOOperator ID - LITOOperator ID - LITOOperator ID - LITOOperator ID - LITOOperator ID - LITOOperator ID - LITOOperator ID - LITOOperator ID - LITOOperator ID - LITOOperator ID - LITOOperator ID - LITOOperator ID - LITOOperator ID - LITOOperator ID - VINCENT Lab Interpretation Abnormal (test code = 36928-8) [facility] [id number] 06:32:00 Test Item Value Reference Range Interpretation Comments TOTAL PROTEIN 7.0 gm/dL 6.0-8.5 (BEAKER) (test code = 770) ALBUMIN (BEAKER) 4.3 g/dL 3.5-5.0 (test code = 1145) ALKALINE PHOSPHATASE 75 U/L 30-115 (BEAKER) (test code = 346) BILIRUBIN TOTAL 0.9 mg/dL 0.1-1.2 (BEAKER) (test code = 377) SODIUM (BEAKER) (test 139 meq/L 135-148 code = 381) POTASSIUM (BEAKER) 3.3 meq/L 3.6-5.5 L (test code = 379) CHLORIDE (BEAKER) 104 meq/L 98-106 (test code = 382) CO2 (BEAKER) (test 20 meq/L 20-29 code = 355) BLOOD UREA NITROGEN 7 mg/dL 10-26 L (BEAKER) (test code = 354) CREATININE (BEAKER) 0.69 mg/dL 0.50-1.20 (test code = 358) GLUCOSE RANDOM 123 mg/dL 70-110 H (BEAKER) (test code = 652) CALCIUM (BEAKER) 9.5 mg/dL 8.5-10.5 (test code = 697) AST (SGOT) (BEAKER) 19 U/L 5-40 (test code = 353) ALT (SGPT) (BEAKER) 17 U/L 5-50 (test code = 347) EGFR (BEAKER) (test 139 ESTIMATE D GFR IS code = 1092) mL/min/1.73 sq NOT ACCURA TE m CREATININE CLEARANCE IN PREDICTING GLOMERULAR FILTRATION RATE . ESTIMATED GFR I S NOT APPLICABLE FOR DIALYSIS PATIEN TS. Fowl Blood Tester ID - LITOOperator ID - LITOOperator ID - LITOOperator ID - LITOOperator ID - LITOOperator ID - LITOOperator ID - LITOOperator ID - LITOOperator ID - LITOOperator ID - LITOOperator ID - LITOOperator ID - LITOOperator ID - LITOOperator ID - LITOOperator ID - LITOOperator ID - LITOOperator ID - L ITOOperator ID - LITOOperator ID - LITOCreatine Kinase (CK)2020-11-11 06:30:00 Test Item Value Reference Range Interpretation Comments Total CK (test code = 214 U/L 40-250 2157-6) MIRANDA (test code = MIRANDA) Fowl Blood Tester ID - VINCENT Lab Interpretation (test Normal code = 06016-9) [facility] 06:30[facility]00 Test Item Value Reference Range Interpretation Comments CREATINE KINASE TOTAL (BEAKER) (test 214 U/L 40-250 code = 380) Fowl Blood Tester ID - LITOLactic acid, [id number] 06:18:00 Test Item Value Reference Range Interpretation Comments Lactate, Venous (test 4.74 mmol/L 0.50-2.00 HH Specim en code = 2872) slightly hemolyzed MIRANDA (test code = MIRANDA) Fowl Blood Tester ID - LITOOperator ID - LITOOperator ID - LITOOperator ID - VINCENT Lab Interpretation Abnormal (test code = 11158-9) [facility] [id number] 06:18:00 Test Item Value Reference Range Interpretation Comments LACTATE BLOOD 4.74 mmol/L See_Comment HH Specimen sligh tly VENOUS (2) (BEAKER) hemolyze d [Automated (test code = 2872) message] The system which generated this result transmit cassidy reference range : 0.50-<2.00. The reference range was not used to interpr et this result as normal/abnormal . Fowl Blood Tester ID - LITOOperator ID - LITOOperator ID - LITOOperator ID - LITOCBC with platelet count + automated [id number] 06:01:00 Test Item Value Reference Range Interpretation Comments WBC (test code = 6690-2) 10.8 See_Comment H [A utomated message] The system [employer] generated this result transmitted ref erence range: 4.0 - 10 .0 K/L. The refe rence range was not u sed to interpret this result as normal/abnor mal. RBC (test code = 789-8) 4.63 See_Comment [Au tomated message] The system [employer] generated this result transmitted ref erence range: 4.20 - 5 .80 M/L. The refe rence range was not u sed to interpret this result as normal/abnor mal. MCHC (test code = 786-4) 36.0 See_Comment [A utomated message] The system [employer] generated this result transmitted ref erence range: 32.0 - 3 6.0 GM/DL. The refe rence range was not u sed to interpret this result as normal/abnor mal. Hematocrit (test code = 42.0 % 36.0-50.0 4544-3) MCV (test code = 787-2) 90.7 fL 82.0-99.0 MCH (test code = 785-6) 32.6 pg 27.0-33.0 RDW (test code = 788-0) 12.2 % 12.0-15.0 Platelets (test code = 147 See_Comment L [Aut omated message] 777-3) The system [employer] generated this result transmitted ref erence range: 150 - 43 0 K/CU MM. The referen ce range was not u sed to interpret this result as normal/abnor mal. MPV (test code = 12.1 fL 6.0-11.5 H 20272-7) nRBC (test code = 413) 0 See_Comment [Aut omated message] The system [employer] generated this result transmitted ref erence range: 0 - 0 /1 00 WBC. The refere nce range was not u sed to interpret this result as normal/abnor mal. % Neutros (test code = 83 % 429) % Lymphs (test code = 10 % 430) % Monos (test code = 6 % 431) % Eos (test code = 432) 0 % % Baso (test code = 437) 0 % # Neutros (test code = 8.97 See_Comment H [Aut omated message] 670) The system [employer] generated this result transmitted ref erence range: 1.80 - 8 .00 K/L. The refe rence range was not u sed to interpret this result as normal/abnor mal. # Lymphs (test code = 1.05 See_Comment L [Auto mated message] 414) The system [employer] generated this result transmitted ref erence range: 1.48 - 4 .50 K/L. The refe rence range was not u sed to interpret this result as normal/abnor mal. # Monos (test code = 0.63 See_Comment [Autom ated message] 415) The system [employer] generated this result transmitted ref erence range: 0.00 - 1 .30 K/L. The refe rence range was not u sed to interpret this result as normal/abnor mal. # Eos (test code = 416) 0.04 See_Comment [Au tomated message] The system [employer] generated this result transmitted ref erence range: 0.00 - 0 .50 K/L. The refe rence range was not u sed to interpret this result as normal/abnor mal. # Baso (test code = 417) 0.04 See_Comment [A utomated message] The system [employer] generated this result transmitted ref erence range: 0.00 - 0 .20 K/L. The refe rence range was not u sed to interpret this result as normal/abnor mal. Immature 0 % 0-0 Granulocytes-Relative (test code = 2801) Lab Interpretation (test Abnormal code = 03047-2) [facility] W/PLT COUNT & AUTO [id number] 06:01:00 Test Item Value Reference Range Interpretation Comments WHITE BLOOD CELL COUNT (BEAKER) 10.8 K/ L 4.0-10.0 H (test code = 775) RED BLOOD CELL COUNT (BEAKER) 4.63 M/ L 4.20-5.80 (test code = 761) HEMOGLOBIN (BEAKER) (test code = 15.1 GM/DL 13.0-16.8 410) HEMATOCRIT (BEAKER) (test code = 42.0 % 36.0-50.0 411) MEAN CORPUSCULAR VOLUME (BEAKER) 90.7 fL 82.0-99.0 (test code = 753) MEAN CORPUSCULAR HEMOGLOBIN 32.6 pg 27.0-33.0 (BEAKER) (test code = 751) MEAN CORPUSCULAR HEMOGLOBIN CONC 36.0 GM/DL 32.0-36.0 (BEAKER) (test code = 752) RED CELL DISTRIBUTION WIDTH 12.2 % 12.0-15.0 (BEAKER) (test code = 412) PLATELET COUNT (BEAKER) (test 147 K/CU MM 150-430 L code = 756) MEAN PLATELET VOLUME (BEAKER) 12.1 fL 6.0-11.5 H (test code = 754) NUCLEATED RED BLOOD CELLS 0 /100 WBC 0-0 (BEAKER) (test code = 413) NEUTROPHILS RELATIVE PERCENT 83 % (BEAKER) (test code = 429) LYMPHOCYTES RELATIVE PERCENT 10 % (BEAKER) (test code = 430) MONOCYTES RELATIVE PERCENT 6 % (BEAKER) (test code = 431) EOSINOPHILS RELATIVE PERCENT 0 % (BEAKER) (test code = 432) BASOPHILS RELATIVE PERCENT 0 % (BEAKER) (test code = 437) NEUTROPHILS ABSOLUTE COUNT 8.97 K/ L 1.80-8.00 H (BEAKER) (test code = 670) LYMPHOCYTES ABSOLUTE COUNT 1.05 K/ L 1.48-4.50 L (BEAKER) (test code = 414) MONOCYTES ABSOLUTE COUNT (BEAKER) 0.63 K/ L 0.00-1.30 (test code = 415) EOSINOPHILS ABSOLUTE COUNT 0.04 K/ L 0.00-0.50 (BEAKER) (test code = 416) BASOPHILS ABSOLUTE COUNT (BEAKER) 0.04 K/ L 0.00-0.20 (test code = 417) IMMATURE GRANULOCYTES-RELATIVE 0 % 0-0 PERCENT (BEAKER) (test code = 2801) RAD, HIP, 2 VIEWS, [id number] 16:49:00Reason for exam:->HIP PAINFINAL REPORT AP PELVIS, RIGHT HIP 2 VIEWS HISTORY: Right hip pain COMPARISON: None FINDINGS: AP and lateral views of the right hip and an AP view of the pelvis were obtained. No acute fracture is visualized. There is abnormal sclerosis and lucency in the bilateral femoral heads suggestive of bilateral femoral head avascular necrosis. In the right hip, this is associated with some early flattening of the superior lateral aspect of the femoral head suggestive of early femoral headcollapse. No joint space narrowing or osteophyte formation are visualized in the right hip. No femoral neck fracture. There is the suggestion of some early flattening of the left femoral head as well. I MPRESSION: 1. Avascular necrosis of the right femoral head, associated with early femoral head collapse. Signed: Montana Zambrano MDReport Verified Date/Time: 10/02/2019 16:49:06 Reading Location: [facility] Radiology Reading Room RAD, PELVIS, 1 OR 2 VIEWS 2019-10-02 16:49:00Reason for exam:->HIP PAINFINAL REPORT AP PELVIS, RIGHT HIP 2 VIEWS HISTORY: Right hip pain COMPARISON: None FINDINGS: AP and lateral views of the right hip and an AP view of the pelvis were obtained. No acute fracture is visualized. There is abnormal sclerosis and lucency in the bilateral femoral heads suggestive of bilateral femoral head avascular necrosis. In the right hip, this is associated with someearly flattening of the superior lateral aspect of the femoral head suggestive of early femoral headcollapse. No joint space narrowing or osteophyte formation are visualized in the right hip. No femoral neck fracture. There is the suggestion of some early flattening of the left femoral head as well. IMPRESSION: 1. Avascular necrosis of the right femoral head, associated with early femoral head collapse. Signed: Montana Zambrano MDReport Verified Date/Time: 10/02/2019 16:49:06 Reading Location: [facility] Radiology Reading Room Panel Description: SARS-CoV-2 (COVID-19) RNA [Presence] in Unspecified specimen by JESSICA with probe [id number] 08:28:00 Test Item Value Reference Range Interpretation Comments SARS-CoV-2, Not Detected Not Detected This test was d eveloped and JESSICA (test code its performan ce = 78747-0) characteristics determinedby [facility]. T his test has not been FDA cl eared orapproved. Thi s test has been authorized by FDA under an Emerge ncy UseAuthorizatio n (EUA). This test is on ly authorized for the duration oftime the decl aration that circumstances e xist justifying misty uthorization of the emergenc y use of in vitro diagnosti c tests fordetection of SARS-CoV-2 virus and/or di agnosis of COVID-19 infect ionunder section 564(b)( 1) of the Act, 21 U.S.C. 360bbb-3(b)(1), unlessthe authorization i s terminated or revoked soon er.When diagnostic test ing is negative, the p ossibility of a falsenegat srinivasan result should be consi dered in the context of a patient'srecent exposures and the presenc e of clinical signs and symptomsconsist ent with COVID-19. An in dividual without symptom s of COVID-19and who is not shedding SARS-C oV-2 virus would expect to have anegative (not detected) result in this assay.
<br/ >Performed by:
Caipiaobao Ed (ALDA)

[facility]
[2022-11-28] MEDS ORDERED: LIDOCAINE 2% INJ, 20 mL 20 ML ONE (18:56)
--- NOTE | 2022-11-28 19:11 | EDPHYS ---
Physician Documentation [facility] Name: Velasquez Mai Age: 27 yrs Sex: Male : 1995 Arrival Date: 11/28/2022 Time: 18:24 Bed 9 Private MD: ED Physician Himanshu Lopez HPI: 11/28 21:38 This 27 yrs old Male presents to ER via Ambulatory with complaints of Hook in snw groin area. 21:38 Onset: The symptoms/episode began/occurred suddenly, just prior to arrival. Associated snw signs and symptoms: The patient has no apparent associated signs or symptoms. Modifying factors: The patient symptoms are alleviated by nothing, the patient symptoms are aggravated by movement. The patient has not experienced similar symptoms in the past. It is unknown whether or not the patient has recently seen a physician[place] treble [place]. Historical: - Allergies: 18:38 No Known Allergies; jl7 - Home Meds: 18:38 None [Active]; jl7 - PMHx: 18:38 None; jl7 - PSHx: 18:38 None; jl7 - Immunization history:: Last tetanus immunization: 2021. - Social history:: Smoking status: Patient denies any tobacco usage or history of. ROS: 21:40 Constitutional: Negative for fever, chills, and weight loss, Eyes: Negative for injury, snw pain, redness, and discharge, ENT: Negative for injury, pain, and discharge, Neck: Negative for injury, pain, and swelling, Cardiovascular: Negative for chest pain, palpitations, and edema, Respiratory: Negative for shortness of breath, cough, wheezing, and pleuritic chest pain, Abdomen/GI: Negative for abdominal pain, nausea, vomiting, diarrhea, and constipation, Back: Negative for injury and pain, : Negative for injury, bleeding, discharge, and swelling, MS/Extremity: Negative for injury and deformity, Neuro: Negative for headache, weakness, numbness, tingling, and seizure, Psych: Negative for depression, anxiety, suicide ideation, homicidal ideation, and hallucinations. 21:40 Skin: Positive for foreign body of left medial thigh. Exam: 21:40 Constitutional: This is a well developed, well nourished patient who is awake, alert, snw and in no acute distress. Head/Face: Normocephalic, atraumatic. Eyes: Pupils equal round and reactive to light, extra-ocular motions intact. Lids and lashes normal. Conjunctiva and sclera are non-icteric and not injected. Cornea within normal limits. Periorbital areas with no swelling, redness, or edema. ENT: Nares patent. No nasal discharge, no septal abnormalities noted. Tympanic membranes are normal and external auditory canals are clear. Oropharynx with no redness, swelling, or masses, exudates, or evidence of obstruction, uvula midline. Mucous membranes moist. Neck: Trachea midline, no thyromegaly or masses palpated, and no cervical lymphadenopathy. Supple, full range of motion without nuchal rigidity, or vertebral point tenderness. No Meningismus. Chest/axilla: Normal chest wall appearance and motion. Nontender with no deformity. No lesions are appreciated. Cardiovascular: Regular rate and rhythm with a normal S1 and S2. No gallops, murmurs, or rubs. Normal PMI, no JVD. No pulse deficits. Respiratory: Lungs have equal breath sounds bilaterally, clear to auscultation and percussion. No rales, rhonchi or wheezes noted. No increased work of breathing, no retractions or nasal flaring. Abdomen/GI: Soft, non-tender, with normal bowel sounds. No distension or tympany. No guarding or rebound. No evidence of tenderness throughout. Back: No spinal tenderness. No costovertebral tenderness. Full range of motion. MS/ Extremity: Pulses equal, no cyanosis. Neurovascular intact. Full, normal range of motion. Neuro: Awake and alert, GCS 15, oriented to person, place, time, and situation. Cranial nerves II-XII grossly intact. Motor strength 5/5 in all extremities. Sensory grossly intact. Cerebellar exam normal. Normal gait. Psych: Awake, alert, with orientation to person, place and time. Behavior, mood, and affect are within normal limits. 21:40 Skin: Appearance: normal except for affected area, injury, puncture(s), that are deep, of the medial aspect of left thigh. Vital Signs: 18:37 BP 159 / 94; Pulse 98; Resp 17; Temp 97.9; Pulse Ox 96% ; Weight 90.72 kg; Height 5 ft. jl7 6 in. ; 18:37 Body Mass Index 32.28 (90.72 kg, 167.64 cm) jl7 Procedures: 21:38 Foreign Body Removal: a fishhook, from the medial aspect of left thigh, by needle, snw Dressinx4s were used to dress the wound, The patient tolerated the removal well. MDM: 18:43 Patient medically screened. cliff 21:39 Data reviewed: vital signs, nurses notes. I considered the following discharge snw prescriptions or medication management in the emergency department Medications were administered in the Emergency Department. See MAR. Counseling: I had a detailed discussion with the patient and/or guardian regarding the historical points, exam findings, and any diagnostic results supporting the discharge/admit diagnosis, the need for outpatient follow up, for definitive care, to return to the emergency department if symptoms worsen or persist or if there are any questions or concerns that arise at home. Response to treatment: the patient's symptoms have markedly improved after treatment. Special discussion: I discussed in detail with the patient the higher chance of wound infection based on his presenting history. Based on the history and exam findings, there is no indication for further emergent testing or inpatient evaluation. I discussed with the patient/guardian the need to see the primary care provider for further evaluation of the symptoms. 11/28 19:10 Order name: Dressing - Wound; Complete Time: 19:12 snw 11/28 19:10 Order name: Gloves, Sterile; Complete Time: 19:12 snw 11/28 19:10 Order name: Setup Suture Tray; Complete Time: 19:12 snw 11/28 19:10 Order name: Wound Care; Complete Time: 19:18 snw Administered Medications: 18:54 Drug: Lidocaine Infiltration (2 %) 5 mg {Note: administered by RUDY Pereyra .} Route: jl7 Infiltration; 19:12 Follow up: Response: No adverse reaction as6 19:18 Drug: Doxycycline PO 100 mg Route: PO; as6 19:18 Follow up: Response: No adverse reaction as6 Disposition Summary: 11/28/22 19:11 Discharge Ordered Location: Home snw Condition: Stable snw Diagnosis - Encounter for removal of fishhook snw Followup: snw - With: Emergency Department - When: As needed - Reason: Worsening of condition Followup: snw - With: Private Physician - When: 5 - 6 days - Reason: Recheck today's complaints, Continuance of care, Re-evaluation by your physician Discharge Instructions: - Discharge Summary Sheet snw - [place] Removal snw Forms: - Medication Reconciliation Form snw - Thank You Letter snw - Antibiotic Education snw - Prescription Opioid Use snw - Patient Portal Instructions snw - Leadership Thank You Letter snw Prescriptions: - Mobic 7.5 mg Oral Tablet - take 1 tablet by ORAL route once daily take with food; 20 tablet; Refills: 0, snw Product Selection Permitted - Doxycycline Hyclate 100 mg Oral Tablet - take 1 tablet by ORAL route every 12 hours; 20 tablet; Refills: 0, Product snw Selection Permitted Signatures: Himanshu Lopez MD MD cha Waters, Shelly, OCEANOLOGY TEACHER-C OCEANOLOGY TEACHER-Luisw Tiana Peterson, RN RN jl7 Leobardo Kohli RN RN as6
--- NOTE | 2022-11-28 19:11 | ER ---
Nurse's Notes [facility] Name: Velasquez Mai Age: 27 yrs Sex: Male : 1995 Arrival Date: 11/28/2022 Time: 18:24 Bed 9 Private MD: Diagnosis: Encounter for removal of fishhook Presentation: 11/28 18:37 Chief complaint: Patient states: Hook to left inner thigh, last tetanus 1 year ago. jl7 Coronavirus screen: At this time, the client does not indicate any symptoms associated with coronavirus-19. Ebola Screen: No symptoms or risks identified at this time. Initial Sepsis Screen: Does the patient meet any 2 criteria? No. Patient's initial sepsis screen is negative. Does the patient have a suspected source of infection? No. Patient's initial sepsis screen is negative. Risk Assessment: Do you want to hurt yourself or someone else? Patient reports no desire to harm self or others. Onset of symptoms was November 28, 2022. 18:37 Method Of Arrival: Ambulatory [facility] 18:37 Acuity: ANDREIA 4 jl7 Triage Assessment: 18:38 General: Appears in no apparent distress. uncomfortable, Behavior is calm, cooperative, jl7 appropriate for age. Pain: Complains of pain in medial aspect of left thigh. Neuro: Level of Consciousness is awake, alert, obeys commands, Oriented to person, place, time, situation. Cardiovascular: Patient's skin is warm and dry. Respiratory: Airway is patent Respiratory effort is even, unlabored, Respiratory pattern is regular, symmetrical. Derm: Skin is pink, warm \T\ dry. Musculoskeletal: foreign body noted to be in left inner thigh. Historical: - Allergies: 18:38 No Known Allergies; jl7 - Home Meds: 18:38 None [Active]; jl7 - PMHx: 18:38 None; jl7 - PSHx: 18:38 None; jl7 - Immunization history:: Last tetanus immunization: 2021. - Social history:: Smoking status: Patient denies any tobacco usage or history of. Screenin:18 [facility] ED Fall Risk Assessment (Adult) Score/Fall Risk Level 0 - 2 = Low Risk. Abuse as6 screen: Denies threats or abuse. Denies injuries from another. Nutritional screening: No deficits noted. Tuberculosis screening: No symptoms or risk factors identified. Vital Signs: 18:37 BP 159 / 94; Pulse 98; Resp 17; Temp 97.9; Pulse Ox 96% ; Weight 90.72 kg; Height 5 ft. jl7 6 in. ; 18:37 Body Mass Index 32.28 (90.72 kg, 167.64 cm) jl7 ED Course: 18:26 Patient arrived in ED. mr 18:27 Hafsa Weir FNP-C is [facility]. snw 18:27 Himanshu Lopez MD is Attending Physician. snw 18:36 Tiana Peterson, GUILLERMINA is Primary Nurse. jl7 18:38 Triage completed. jl7 18:38 Arm band placed on right wrist. jl7 19:18 Bed in low position. Call light in reach. Provided Education on: wound care . as6 19:18 No provider procedures requiring assistance completed. Patient did not have IV access as6 during this emergency room visit. Administered Medications: 18:54 Drug: Lidocaine Infiltration (2 %) 5 mg {Note: administered by RUDY Pereyra .} Route: jl7 Infiltration; 19:12 Follow up: Response: No adverse reaction as6 19:18 Drug: Doxycycline PO 100 mg Route: PO; as6 19:18 Follow up: Response: No adverse reaction as6 Medication: 19:19 VIS not applicable for this client. as6 Outcome: 19:11 Discharge ordered by . snw 19:18 Discharged to home ambulatory. as6 19:18 Condition: stable 19:18 Discharge instructions given to patient, Instructed on discharge instructions, follow up and referral plans. medication usage, wound care, Demonstrated understanding of instructions, follow-up care, medications, wound care, Prescriptions given X 2. 19:19 Patient left the ED. as6 Signatures: Hafsa Weir FNP-C FNP-Nam Caitie Johns mr Tiana Peterson, RN RN jl7 Leobardo Kohli RN RN as6
[2022-11-28] MEDS ORDERED: DOXYCYCLINE 100 MG CAP PO ONE (19:25)
[2022-11-28 19:26] VITALS: BP 159/94; TEMP 97.9; O2SAT 96
== END 2022-11-28 19:19 | disposition home or self-care (01) ==
LOC: ER 18:24
DX: S71.142A Puncture wound with foreign body, left thigh, initial encounter (principal)
CPT/HCPCS: 99283